=== PATIENT | male | born 1975 | race Caucasian/White ===

== ENCOUNTER → 2018-04-30 | Outpatient (CLI) | payer MEDICARE, MEDICAID ==
[2015-03-02 15:25] VITALS: BP 148/87
[~2018-04-30] MED LIST: ACET160S PO; AMIT75TA PO; ASCO500C PO; BACL10TA PO; BISA10SU2 RC; CA C PO; CELE200C PO; CHOL2000 PO; CYCL-331 PO; DANT100C PO; ESZO3TAB28 PO; FAMO20TA5 PO; FLUD0.1T PO; IRON150C15 PO; LIDO30CR TP; MAGN2400 PO; METH1TAB13 PO; MIDO5TAB PO; ONDA4TAB11 PO; PIPE3.375 IV; SENN-37 PO; SENN1TAB37 PO; TIZA4TAB PO
--- NOTE | 2018-04-30 15:12 | RAD ---
EXAM: Carotid Doppler sonogram. HISTORY: Transient ischemic attack. TECHNIQUE: Johansen scale and color Doppler sonographic evaluation of the neck with spectral waveform analysis was performed and static images are submitted for review. FINDINGS: The peak systolic velocity within the right common carotid artery is 158 cm/sec. The peak systolic velocity within the right internal carotid artery is 72 cm/sec and the end diastolic velocity within the right internal carotid artery is 26 cm/sec. The right ICA/CCA ratio is 0.63. The peak systolic velocity within the left common carotid artery is 144 cm/sec. The peak systolic velocity within the left internal carotid artery is 102 cm/sec and the end diastolic velocity within the left internal carotid artery is 31 cm/sec. The left ICA/CCA ratio is 0.84. There is normal antegrade flow within both vertebral arteries. IMPRESSION: No Doppler evidence of hemodynamically significant stenosis within the carotid or vertebral arteries. PQRS Compliance Statement - Stenosis calculations for CT, MR and conventional angiography are based upon measurement of the distal ICA diameter in accordance with the NASCET methodology. Stenosis calculations for carotid ultrasound studies are derived from validated velocity criteria which are known to correlate with the NASCET methodology. Electronically signed by: Yaquelin Glez MD (04/30/2018 3:07 PM) [id number]
== END | disposition home or self-care (01) ==
LOC: US 10:57
PROVIDERS: ATTEND Family Medicine
DX: G45.8 Other transient cerebral ischemic attacks and related syndromes (principal)
CPT/HCPCS: 93880

== ENCOUNTER → 2019-05-09 | Outpatient (CLI) | payer MEDICARE, MEDICAID ==
[2015-03-02 15:25] VITALS: BP 148/87
[~2019-05-09] MED LIST changes: -BISA10SU2 RC; +BISA10SU4 RC; -MIDO5TAB PO; +MIDO5TAB4 PO; +ONDA-84 PO; -ONDA4TAB11 PO; -TIZA4TAB PO; +TIZA4TAB2 PO
--- NOTE | 2019-05-09 09:46 | RAD ---
Scrotal ultrasound HISTORY: Right testicle swelling. Groin cellulitis. TECHNIQUE: Grayscale, color Doppler and spectral waveform analysis. FINDINGS: Right side: Right testicle measures 5.5 x 3.5 x 3.0 cm. Homogeneous echotexture without focal lesion. Vascularity is as expected with intact blood supply. Small hydrocele. Small epididymal head cyst measures about 4 mm, epididymis appears otherwise unremarkable. Left side: Left testicle measures 5.2 x 3.6 x 2.7 cm with homogeneous echotexture and no focal lesion. Vascularity is as expected and blood supply is intact. Small hydrocele. Left epididymis contains a small epididymal head cyst measuring about 3 mm. Left epididymis is slightly larger and more vascular than the right epididymis, but not definitely abnormal. IMPRESSION: 1. No intrinsic testicle abnormality. 2. Small subcentimeter epididymal head cysts. 3. The left epididymis is slightly larger and more vascular than the right epididymis. Uncertain significance, but correlate for symptoms of left epididymitis, and consider follow-up ultrasound as indicated. Electronically signed by: Chavez Edmonds MD (05/09/2019 9:43 AM) [id number]
== END | disposition home or self-care (01) ==
LOC: US 08:55
PROVIDERS: ATTEND Family Medicine
DX: N50.3 Cyst of epididymis (principal); N43.3 Hydrocele, unspecified; L03.314 Cellulitis of groin
CPT/HCPCS: 76870

== ENCOUNTER 2021-03-16 13:41 | Emergency (ER) | payer MEDICARE, MEDICAID ==
[~2021-03-16] VITALS: Ht 193 cm; Wt 76.4 kg
[~2021-03-16 13:41] MED LIST changes: -CYCL-331 PO; +CYCL10TA19 PO; -LIDO30CR TP; +LIDO30CR2 TP; -MAGN2400 PO; +MAGN24003 PO; +TIZA-75 PO; -TIZA4TAB2 PO
[2021-03-16 14:32] VITALS: BP 116/81
[2021-03-16 14:46] LABS: BASO % 1 % (0-3); EOS # 0.1 x10^3/uL (0.0-0.7); EOS % 2 % (0-3); HEMOGLOBIN 12.3 g/dL (13.0-17.5); LYMPH # 1.1 x10^3/uL (1.0-4.8); LYMPH % 22 % (24-48); MEAN CORPUSCULAR HEMOGLOBIN 30 pg (25-35); MEAN CORPUSCULAR HGB CONC 33 g/dL (31-37); MEAN CORPUSCULAR VOLUME 91 fL (79-100); MONO # 0.5 x10^3/uL (0.0-1.1); MONO % 10 % (0-9); NEUT # 3.1 x10^3uL (1.8-7.7); NEUT % 65 % (31-73); PLATELET COUNT 206 x10^3/uL (140-400); RED BLOOD COUNT 4.05 x10^6/uL (4.30-5.70); RED CELL DISTRIBUTION WIDTH 12.7 % (11.5-14.5); WHITE BLOOD COUNT 4.8 x10^3/uL (4.0-11.0)
--- NOTE | 2021-03-16 14:52 | PHYS DOC ---
Past History Past Medical History: UTI Additional Past Medical Histor: sepsis, paraplegia (NIDHI CAST [employer]PER[employer]) General Adult EDM: Chief Complaint: CELLULITIS HPI: HPI: Patient is a 45-year-old male that presents today with a left elbow cellulitis. Patient was seen on Thursday at his primary care doctor's office, Dr. Diaz, for a raised area that was concerning for cellulitis he was placed on oral antibiotics in the office. Patient was reseen today in the office and the redness had gotten worse patient stated he also had an open wound there that was draining, patient was sent to the emergency department from the primary care's office for evaluation and treatment of cellulitis and admission. Patient was informed by this [employer]PERVIS[employer] that Dr. Avendano's office had called and is requesting the patient be admitted for IV antibiotics of vancomycin and then patient will have a PICC line placed on Thursday for outpatient infusion therapy. Patient at this time is not wanting to be admitted overnight through the weekend for IV antibiotics. Patient would like a PICC line placed at this time, there is no resources at this time for PICC line placement. Talk with Dr. Diaz he states if patient does not request to be admission then patient to get daptomycin in the emergency department today and then come back to the emergency department tomorrow for dose of daptomycin and then on Thursday have a PICC line placed. We will spoke to patient regarding plan of care (NIDHI CAST [employer]PER[employer]) Review of Systems: Review of Systems: Constitutional: fever or chills Eyes: Denies change in visual acuity HENT: Denies nasal congestion or sore throat Respiratory: Denies cough or shortness of breath Cardiovascular: Denies chest pain or edema GI: Denies abdominal pain, nausea, vomiting, bloody stools or diarrhea : Denies dysuria Musculoskeletal: Left arm redness, swelling, pain Integument: Denies rash Neurologic: Denies headache, focal weakness or sensory changes Endocrine: Denies polyuria or polydipsia Lymphatic: Denies swollen glands Psychiatric: Denies depression or anxiety (NIDHI CAST [employer]) Allergies: Allergies: Allergies Coded Allergies Type Severity Reaction Last Updated Verified I S O L A T I O N *CONTACT* Allergy Unknown 02/28/15 No NKMA Allergy Unknown 02/28/15 No (NIDHI CAST APRN) Physical Exam: PE: Constitutional: Patient is sitting in motorized wheelchair, paraplegic patient has use of his upper extremities, nontoxic in appearance HENT: Normocephalic, atraumatic, bilateral external ears normal, oropharynx moist, no oral exudates, nose normal. [] Eyes: PERRLA, EOMI, conjunctiva normal, no discharge. [] Neck: Normal range of motion, no tenderness, supple, no stridor. [] Cardiovascular:Heart rate regular rhythm, no murmur [] Lungs & Thorax: Bilateral breath sounds clear to auscultation [] Abdomen: Bowel sounds normal, soft, no tenderness, no masses, no pulsatile masses. [] Skin: Warm, dry, no erythema, no rash. [] Back: No tenderness, no CVA tenderness. [] Extremities: Left elbow swollen with a 2 cm x 2 cm open wound noted, no drainage at this time noted, elbow is swollen and tender to touch and is noted into the forearm with warmth noted, cap refill and neurovascular distal to the swelling is intact Neurologic: Alert and oriented X 3, normal motor function, normal sensory function, no focal deficits noted. [] Psychologic: Affect normal, judgement normal, mood normal. [] (NIDHI CAST APRN) Current Patient Data: Labs: Laboratory Tests Test 03/16/21 14:25 White Blood Count 4.8 x10^3/uL Red Blood Count 4.05 x10^6/uL Hemoglobin 12.3 g/dL Hematocrit 37.0 % Mean Corpuscular Volume 91 fL Mean Corpuscular Hemoglobin 30 pg Mean Corpuscular Hemoglobin Concent 33 g/dL Red Cell Distribution Width 12.7 % Platelet Count 206 x10^3/uL Neutrophils (%) (Auto) 65 % Lymphocytes (%) (Auto) 22 % Monocytes (%) (Auto) 10 % Eosinophils (%) (Auto) 2 % Basophils (%) (Auto) 1 % Neutrophils # (Auto) 3.1 x10^3uL Lymphocytes # (Auto) 1.1 x10^3/uL Monocytes # (Auto) 0.5 x10^3/uL Eosinophils # (Auto) 0.1 x10^3/uL Basophils # (Auto) 0.0 x10^3/uL Sodium Level 136 mmol/L Potassium Level 3.9 mmol/L Chloride Level 102 mmol/L Carbon Dioxide Level 28 mmol/L Anion Gap 6 Blood Urea Nitrogen 12 mg/dL Creatinine 0.6 mg/dL Estimated GFR (Cockcroft-Gault) 147.0 BUN/Creatinine Ratio 20 Glucose Level 119 mg/dL Lactic Acid Level 0.8 mmol/L Calcium Level 8.7 mg/dL Total Bilirubin 0.3 mg/dL Aspartate Amino Transf (AST/SGOT) 42 U/L Alanine Aminotransferase (ALT/SGPT) 52 U/L Alkaline Phosphatase 72 U/L Total Protein 7.2 g/dL Albumin 2.8 g/dL Albumin/Globulin Ratio 0.6 SARS-CoV-2 Antigen (Rapid) Negative Vital Signs: Vital Signs Date Time Temp Pulse Resp B/P (MAP) Pulse Ox O2 Delivery O2 Flow Rate FiO2 03/16/21 14:32 98.7 86 18 116/81 (93) 99 (NIDHI CAST APRN) EKG: EKG: [] (NIDHI CAST APRN) Radiology/Procedures: Radiology/Procedures: [] (NIDHI CAST APRN) Heart Score: C/O Chest Pain: N/A Risk Factors: Risk Factors: DM, Current or recent (<one month) smoker, HTN, HLP, family history of CAD, obesity. Risk Scores: Score 0 - 3: 2.5% MACE over next 6 weeks - Discharge Home Score 4 - 6: 20.3% MACE over next 6 weeks - Admit for Clinical Observation Score 7 - 10: 72.7% MACE over next 6 weeks - Early Invasive Strategies (NIDHI CAST APRN) Course & Med Decision Making: Course & Med Decision Making Pertinent Labs and Imaging studies reviewed. (See chart for details) [id number] Diaz reported the lab findings to him he wishes for patient to receive a dose of daptomycin IV while here in the emergency department, patient does not want to be admitted to the hospital patient is okay per Dr. Diaz to go home and to return on Thursday for another dose of daptomycin. Patient informed of Dr. 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 Spoke to Dr. Diaz again on the phone he states to give oral antibiotics on an outpatient basis and have patient follow-up in the office on Thursday. Patient is to return to the emergency department for increased swelling and pain, fever, or inability to take medications (NIDHI CAST APRN) Alexa Disclaimer: Dragon Disclaimer: This electronic medical record was generated, in whole or in part, using a voice recognition dictation system. (NIDHI CAST APRN) Attending Co-Sign The patient was seen and interviewed as well as examined at the bedside. The chart was reviewed. The case was discussed. Agree with the plan of care. (JOSE DURAN DO) Departure Departure: Impression: Primary Impression: Cellulitis Qualified Codes: L03.114 - Cellulitis of left upper limb Disposition: HOME / SELF CARE / HOMELESS Condition: STABLE Referrals: KIM GARVEY MD (PCP) Patient Instructions: Cellulitis Additional Instructions: Continue the Keflex Take Bactrim 1 tablet twice daily Follow-up on Thursday with Dr. Diaz's office for further management of your cellulites Return to the emergency department for increased pain, increased swelling, increased redness, increased fever not managed with Tylenol and/or ibuprofen, or any other concerns you may have related to the cellulitis Scripts Sulfamethoxazole/Trimethoprim (BACTRIM DS TABLET) 1 Each Tablet 1 TAB PO BID for cellulitits for 10 Days, #20 TAB 0 Refills Prov: NIDHI CAST APRN 03/16/21 NIDHI CAST APRN Mar 16, 2021 14:52 JOSE DURAN DO Mar 17, 2021 07:23
[2021-03-16 15:04] LABS: ALBUMIN 2.8 g/dL (3.4-5.0); ALBUMIN/GLOBULIN RATIO 0.6 (1.0-1.7); CALCIUM 8.7 mg/dL (8.5-10.1); CREATININE 0.6 mg/dL (0.7-1.3); POTASSIUM 3.9 mmol/L (3.5-5.1); TOTAL BILIRUBIN 0.3 mg/dL (0.2-1.0); TOTAL PROTEIN 7.2 g/dL (6.4-8.2)
[2021-03-16] MEDS ORDERED: DAPTOmycin (GENERIC) IVPB 500 MG in IV NORMAL SALINE 50ML 50 ML IV STA (15:18)
[2021-03-16] MEDS ORDERED: SULF1TAB24 PO (16:17)
== END 2021-03-16 16:50 | disposition home or self-care (01) ==
LOC: ER 13:41
DX: L03.114 Cellulitis of left upper limb (principal); Z20.822 Contact with and (suspected) exposure to COVID-19
CPT/HCPCS: 36415; 80053; 83605; 85025; 87040; 87426; 99283; C9803; U0003